=== PATIENT | male | born 1975 | race Caucasian/White ===

== ENCOUNTER 2020-10-23 21:18 | Emergency (ER) | payer OTHER, SELFPAY ==
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
[2020-10-23 21:23] VITALS: BP 150/71; PULSE 81; RESP 16; TEMP 37.1; O2SAT 100; BMI 38.2
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
[2020-10-23] MEDS: Ibuprofen 600 MG TABLET PO (22:10)
== END 2020-10-23 22:17 | disposition home or self-care (01) ==
LOC: HO.ED 21:56
PROVIDERS: Emergency Provider Internal Medicine
DX: Z04.1 Encounter for examination and observation following transport accident (principal); G89.11 Acute pain due to trauma; M25.562 Pain in left knee; M25.561 Pain in right knee; M54.5 Low back pain
CPT/HCPCS: 73080; 73564; 99283; 99284

== ENCOUNTER → 2020-12-27 09:36 | Outpatient (BNVA) | payer OTHER, SELFPAY | PROVIDERS: PCP Family Medicine; Visit Provider Nurse Practitioner ==

== ENCOUNTER 2021-01-11 10:00 | Outpatient (RCR) | payer OTHER, SELFPAY ==
--- NOTE | 2021-01-11 16:19 | MHC.PT.DC ---
[facility] Office [place] Office [place] Office [address] Renetta Mclaughlin [address] [phone] F: [phone] F: [phone] F: [phone] F: [phone] Physical Therapy Discharge Report Diagnosis: SPRAIN OF LIGAMENTS OF LUMBAR SPINE, INITIAL ENCOUNTER S33.5XXA - DR. AREVALO Date of Surgery: Date of Evaluation: 11/08/20 Date of Discharge: 01/11/21 Treatments to Date: 12 Cancellations to Date: 0 No Shows to Date: 0 Discharge Status: Achieved Goals Improved Function Independent with HEP Discharge Summary: Michael progressed well in PT and demonstrates improved strength, posture and body mechanics. He reports reduction in both frequency and intensity of symptoms, although he works 7 days a week and reports he often feels low back fatigue and stiffness after work. We have discussed this and he feels he is able to self manage symptoms and will contact me with any questions or difficulties. Electronically signed by: ARMANDO ARCOS PT, DPT Please sign and return to therapist. Thank you for your referral.
== END 2021-02-15 12:12 | disposition other institution (70) ==
LOC: HO.PT 10:00
PROVIDERS: PCP Family Medicine; Visit Provider Family Medicine
DX: S33.5XXD Sprain of ligaments of lumbar spine, subsequent encounter (principal)
CPT/HCPCS: 97014; 97110; 97140; 97161; 97530; 97535

== ENCOUNTER → 2021-01-27 09:26 | Outpatient (BNVA) | payer OTHER, SELFPAY | PROVIDERS: PCP Family Medicine; Visit Provider Nurse Practitioner ==

== ENCOUNTER 2021-09-08 09:32 | Emergency (ER) | payer OTHER, SELFPAY ==
[2021-09-08 09:43] VITALS: BP 125/70; PULSE 70; RESP 18; TEMP 36.6; O2SAT 97; BMI 37.8
[2021-09-08 10:12] VITALS: BP 150/81; PULSE 68; RESP 16; TEMP 36.2; O2SAT 98
--- NOTE | 2021-09-08 11:11 | ED.HA ---
HPI - Headache General Chief Complaint: Headache Stated Complaint: HEAD PAIN Time Seen by Provider: 09/08/21 11:11 Source: patient Mode of arrival: ambulatory Limitations: no limitations History of Present Illness HPI Narrative: 46 years old male with past medical history of CIC, GERD, hypertension is here today for complaints of right-sided occipital headache. Patient reports that the pain started 2 days ago any afternoon when he was at work. Patient reports the pain as sharp to the top of his head. Reports that the pain is worse when he touches his head. Pain radiates to his year in his eye. The pain is worse when he moves around or when he is touching top of his head. Patient denies any blurred vision, light sensitivity, vision changes. Patient reports to have right ear pain for the last few days. Patient reports that he cleans his ears every night with Q-tip. Patient reports that he took ibuprofen yesterday and the pain went away. However he reports that when he woke up this morning the pain was back. Patient denies any dizziness, presyncope or syncope. Denies any neurological symptoms. MD elicited complaint: headache Onset description: gradually Location: right and occipital Severity: mild Quality & Timing: throbbing Exacerbating factors: other (Touching, movement) Relieving factors: NSAIDs Context: other (At work 2 day's ago) Associated symptoms: other (Right ear pain) Treatments prior to arrival: ibuprofen Related Data Home Medications Medication Instructions Recorded Confirmed polyethylene glycol 3350 17 g PO 11/15/20 gram/dose oral powder Previous Rx's Medication Instructions Recorded cyclobenzaprine 10 mg tablet 10 mg PO TID PRN 7 Days #20 tab 10/27/20 diclofenac potassium 50 mg tablet 50 mg PO TID PRN 14 Days #50 tab 11/01/20 famotidine 40 mg tablet (Pepcid) 40 mg PO BEDTIME 30 Days #30 tab 01/27/21 lisinopril 10 mg tablet 10 mg PO DAILY #90 tab 07/07/21 omeprazole 40 mg capsule,delayed 40 mg PO DAILY 30 Days #30 cap NS 08/10/21 release ciprofloxacin 0.2 %-hydrocortisone 3 drp OTIC (EARS) Q12H 7 Days ml 09/08/21 1 % ear drops,suspension (Cipro HC) ibuprofen 600 mg tablet 600 mg PO Q8H PRN #20 tab 09/08/21 Allergies Allergy/AdvReac Type Severity Reaction Status Date / Time No Known Allergies Allergy Verified 09/08/21 09:42 Review of Systems Review of Systems: Constitutional : No Weight loss, No Fever, No Chills, No Night Sweats, No Fatigue, No Malaise ENT/Mouth : No Hearing loss, R Ear Pain, No Nasal Congestion, No Sinus Pain, No Hoarseness, No sore throat, No Rhinorrhea, No Swallowing Difficulty Eyes: R Eye Pain, No Swelling, No Redness, No Foreign Body, No Discharge, No Vision Changes Head: Right-sided headache Cardiovascular : No Chest Pain, No SOB, No Dyspnea on Exertion, No Orthopnea, No Edema, No Palpitations Respiratory : No Cough, No Sputum, No Wheezing, No Smoke Exposure, No Dyspnea Gastrointestinal : No Nausea, No Vomiting, No Diarrhea, No Constipation, No abdominal Pain, No Hematochezia, No Melena Genitourinary : no irregular bleeding, No Dysuria, No Urinary Frequency, No Hematuria, No Urinary Incontinence, No Urgency, No Flank Pain, No Urinary Flow Changes, No Hesitancy Musculoskeletal : No joint pain, No Myalgias, No Joint Swelling Skin : No Skin Lesions, No rash Neuro : No Weakness, No Numbness, No Paresthesias, No Loss of Consciousness, No Dizziness, No Headache Psych : No Anxiety/Panic, No Depression, No SI/HI/AH/VH, No Social Issues, Heme/Lymph: No Bruising, No Bleeding,No Lymphadenopathy Endocrine : No Polyuria, No Polydipsia, No Temperature Intolerance Yes all other systems are reviewed and are negative [facility] Past Medical History Medical History (Updated 09/08/21 @ 11:44 by Dyan Sen [facility]) No known health problems Surgical History Hx of colonoscopy Family History Family History Father Diabetes mellitus Mother No problems noted. Paternal Grandmother No problems noted. Brother No problems noted. Brother No problems noted. Sister No problems noted. Sister No problems noted. Sister No problems noted. Sister No problems noted. Daughter No problems noted. Daughter No problems noted. Daughter No problems noted. Social History Social History (Updated 01/27/21 @ 09:28 by Tosha Doshi [facility]) Alcohol intake: current Alcohol intake frequency: does not drink Physical Exam Vital Signs: Vital Signs: Last Vital Signs Temp 97.1 F 09/08/21 10:12 Pulse 68 09/08/21 10:12 Resp 16 09/08/21 10:12 BP 150/81 H 09/08/21 10:12 Pulse Ox 98 09/08/21 10:12 Body Mass Index 37.8 Const: General: healthy appearing, no acute distress and well developed Nutritional Appearance: well nourished Orientation/consciousness: patient oriented x3 HENMT: Head: Yes normal to inspection, Yes normocephalic and Yes atraumatic Ears: hearing grossly normal bilaterally and other (Right ear otitis externa) General nose exam: Normal external nose present and Normal nares present Face and sinus: Yes normal facial exam Mouth: Normal oral and palatal mucosa present Throat: Yes posterior oropharynx normal, Yes tonsils normal and Yes uvula midline Eyes: General: appearance normal, both eyes and all related structures Neck: Neck: Yes normal visual inspection, Yes full ROM and Yes trachea midline Thyroid: Thyroid normal Resp: Effort & Inspection: normal respiratory effort, able to speak in complete sentences, no tracheal deviation and symmetric chest movement Auscultation: clear to auscultation bilaterally Cardio: Jugular venous distension: no JVD Rate: regular rate Rhythm: regular rhythm Heart sounds: S1 normal heart sound present, S2 normal heart sound present, no gallops and no murmurs GI: Inspection: Yes normal to inspection and No distended Palpation (GI): Soft to palpation, not firm, nontender and No hepatosplenomegaly present Auscultation: normal bowel sounds : General: Yes no CVA tenderness Back/Spine/Pelvis: Back: no CVA tenderness Skin: General skin exam: elasticity normal, turgor normal and dry skin Neuro: General: patient oriented x3 Psych: Appearance: grossly normal Mental Status: mental status grossly normal Speech and movement: Normal speech and movement present Affect: normal affect Attitude: cooperative Thought process: Normal thought process present Thought content: Normal thought content present Insight: Good insight present (Psych) Judgement: Good judgement present (Psych) NIH Stroke Scale Internal: Initial- Upon Arrival Level of Consciousness: Alert Level of Consciousness Questions: Answers both questions correctly Level of Consciousness Commands: Performs both tasks correctly Best Gaze: Normal Visual: No visual loss Facial Palsy: Normal Motor Arm (Right): No drift Motor Arm (Left): No drift Motor Leg (Right): No drift Motor Leg (Left): No drift Limb Ataxia: Absent Sensory: Normal Best Language: No aphasia Dysarthia: Normal Extinction and Inattention: No abnormality Score: 0 Course Course Course Narrative: 46 years old male with past medical history of GERD, hypertension, CIC is here today for complaining of right-sided head pain. Patient reports that the pain started 2 days ago while he was at work. Pain is worse when he touches the area, radiates to right eye and right ear. Upon exam patient does have a right external otitis media. Patient denies any blurred vision, light sensitivity, vision changes. Denies any dizziness, syncope, presyncope. His NIH scale is 0. No neural deficits. This is most likely related to otitis media. Will medicate him with ibuprofen and send him home with Cortisporin suspension drops 4 times a day for 10 days. Discharge Plan Discharge Clinical Impression: Otitis externa Qualifiers: Otitis externa type: noninfectious Noninfectious otitis externa type: unspecified noninfectious type Chronicity: acute Laterality: right Qualified Code(s): H60.501 - Unspecified acute noninfective otitis externa, right ear Headache Qualifiers: Headache type: unspecified Headache chronicity pattern: acute headache Intractability: not intractable Qualified Code(s): R51.9 - Headache, unspecified Patient Disposition: Home, Self-Care Instructions: Otitis Externa (ED), Migraine Headache (ED) Additional Instructions: You were seen here today for right-sided headache. You do have right outer ear infection. Please make sure that you do not use Q-tips to clean your ears. You may dry you years with a towel. You may take ibuprofen to help you with the pain. You will be given script for ear drops any you will be taking them 4 times a day for 10 days. Please return to emergency department if your symptoms will get worse or if you will experience any additional concerning symptoms. Prescriptions: New ibuprofen 600 mg tablet 600 mg PO Q8H PRN (Reason: pain) Qty: 20 RF: 0 Cipro HC 0.2-1 % drops,suspension 3 drp otic (ears) Q12H 7 Days RF: 0 No Action lisinopril 10 mg tablet 10 mg PO DAILY Qty: 90 RF: 0 omeprazole 40 mg capsule,delayed release(DR/EC) 40 mg PO DAILY 30 Days Qty: 30 RF: 0 cyclobenzaprine 10 mg tablet 10 mg PO TID PRN (Reason: muscle spasm) 7 Days Qty: 20 RF: 0 polyethylene glycol 3350 17 gram/dose powder PO RF: 0 diclofenac potassium 50 mg tablet 50 mg PO TID PRN (Reason: pain) 14 Days Qty: 50 RF: 0 famotidine [Pepcid] 40 mg tablet 40 mg PO BEDTIME 30 Days Qty: 30 RF: 6 Referrals: Aristeo Ang MD [Primary Care Provider] - 1 week Stand Alone Forms: Work/School Release Interventions: ED Discharge Assessment Last Done: 09/08/21 11:56 Discharge Date/Time: 09/08/21 11:56 Print Language: Chinese
== END 2021-09-08 11:56 | disposition home or self-care (01) ==
PROVIDERS: Emergency Provider Emergency Medicine Emergency Medical Services; PCP Family Medicine
DX: H60.501 Unspecified acute noninfective otitis externa, right ear (principal); R51.9 Headache, unspecified; I10 Essential (primary) hypertension
CPT/HCPCS: 99283

== ENCOUNTER → 2021-09-09 11:09 | Outpatient (BNVA) | payer OTHER, SELFPAY | PROVIDERS: PCP Family Medicine; Visit Provider Nurse Practitioner ==

== ENCOUNTER 2021-10-03 10:24 | Outpatient (REF) | payer OTHER, SELFPAY ==
[2021-10-03 10:39] LABS: MANUAL DIFF FLAG NO
[2021-10-03 10:49] LABS: Basophils Percent Auto 0.3 % (0-2); Eosinophils Absolute Auto 0.1 X10*3/uL (0.0-0.4); Eosinophils Percent Auto 0.8 % (0-4); Hemoglobin 14.9 g/dl (14.0-18.0); Imm Gran Abs Auto 0.02 X10*3/uL (0.00-0.03); Imm Gran Pct Auto 0.3 % (0.0-0.4); Lymphocytes Percent Auto 29.5 % (20-40); Mean Corpuscular HGB Conc 33.9 g/dl (31.0-36.0); Mean Corpuscular Hemoglobin 30.2 pg (27.0-33.0); Mean Corpuscular Volume 89.1 fL (80.0-98.0); Mean Platelet Volume 9.6 fL (9.4-12.4); Monocytes Absolute Auto 0.3 X10*3/uL (0.1-1.2); Monocytes Percent Auto 4.8 % (2-11); Neutrophils Absolute Auto 4.3 x10*3/uL (2.0-8.3); Neutrophils Percent Auto 64.3 % (45-73); Platelet Count 273 X10*3/uL (160-400); Red Blood Count 4.94 X10*6/uL (4.60-5.80); White Blood Count 6.6 X10*3/uL (4.8-10.8)
[2021-10-03 11:32] LABS: TSH reflex Free T4 1.18 uIU/mL (0.32-4.0)
[2021-10-03 11:42] LABS: Alanine Aminotransferase 13 U/L (0-40); Albumin Level 4.4 g/dL (3.5-5.0); Alkaline Phosphatase 79 U/L (39-117); Anion Gap 15 (12-20); Aspartate Amino Transferase 12 U/L (5-37); Bilirubin Total 0.4 mg/dL (0.0-1.0); Blood Urea Nitrogen 18 mg/dL (9-16); Calcium 10.1 mg/dL (8.4-10.2); Carbon Dioxide 25 mmol/L (22-29); Chloride 104 mmol/L (96-108); Cholesterol 168 mg/dL; Estimated Glomerular Filt Rate > 60; Glucose Fasting 126 mg/dL (60-99); HDL Cholesterol 34 mg/dL; LDL Cholesterol Calculated 114 mg/dl; Potassium 4.6 mmol/L (3.3-5.1); Sodium 139 mmol/L (135-145); Triglycerides 101 mg/dL
== END 2021-10-03 10:25 | disposition home or self-care (01) ==
LOC: HO.LAB 10:24
PROVIDERS: PCP Family Medicine; Visit Provider Nurse Practitioner
DX: Z00.00 Encounter for general adult medical examination without abnormal findings (principal); K21.9 Gastro-esophageal reflux disease without esophagitis
CPT/HCPCS: 36415; 80053; 80061; 84443; 85025

== ENCOUNTER → 2021-10-07 08:43 | Outpatient (BNVA) | payer OTHER, SELFPAY | PROVIDERS: PCP Family Medicine; Referring Provider Family Medicine; Visit Provider Nurse Practitioner | DX: K21.9 Gastro-esophageal reflux disease without esophagitis (principal); K59.04 Chronic idiopathic constipation; D12.6 Benign neoplasm of colon, unspecified | CPT/HCPCS: 99212 ==

== ENCOUNTER → 2021-11-11 | Day surgery (SDC) | payer OTHER, SELFPAY ==
[2021-11-07 09:58] VITALS: BMI 37.8
--- NOTE | 2021-11-10 08:44 | P.CONAN_ITS ---
Documented by User: Nella Bradford NP 11/10/21 08:45 HPI - Anesthesia Eval Consult details Narrative: 46yo M for Colonoscopy PMFSH Active Problems Active Problems: All Active Problems (Updated 09/09/21 @ 11:17 by LINDSAY Murry) Tubular adenoma of colon (Acute) Laboratory examination ordered as part of a routine general medical examination (Acute) Chronic idiopathic constipation (Acute) GERD (gastroesophageal reflux disease) (Acute) Essential hypertension (Acute) Contusion, knee (Acute) Low back sprain (Acute) Muscle strain (Acute) Past Medical History Medical History (Updated 09/09/21 @ 11:17 by LINDSAY Murry) No known health problems Family History Family History Father Diabetes mellitus Mother No problems noted. Paternal Grandmother No problems noted. Brother No problems noted. Brother No problems noted. Sister No problems noted. Sister No problems noted. Sister No problems noted. Sister No problems noted. Daughter No problems noted. Daughter No problems noted. Daughter No problems noted. Surgical History Surgical History (Updated 09/09/21 @ 11:17 by LINDSAY Murry) Hx of colonoscopy Social History Social History (Updated 11/07/21 @ 10:00 by Deb Styles RN) Alcohol intake: current Alcohol intake frequency: does not drink Patient Tobacco Use Status: Never used Tobacco Use of substances other than those prescribed or required for medical reasons: No Meds Allergies Allergy/AdvReac Type Severity Reaction Status Date / Time No Known Allergies Allergy Verified 11/07/21 09:57 Home Medications Medication Instructions Recorded Confirmed Last Taken Type polyethylene glycol 3350 17 g PO 11/15/20 Unknown History gram/dose oral powder Exam Exam Date and Time: November 10, 2021 0844 Height,Weight and Vital Signs: Height 5 ft 5 in Weight 102.965 kg Pertinent Lab Results Pertinent Lab Results: Laboratory Tests 10/03/21 10/03/21 10:38 10:38 WBC 6.6 Hgb 14.9 Hct 44.0 Plt Count 273 Sodium 139 Potassium 4.6 Chloride 104 Carbon Dioxide 25 BUN 18 H Creatinine 1.17 Assessment and Plan Assessment Anesthesia Assessment: Chart Reviewed Documented by User: Halina Garcia MD 11/11/21 10:19 [facility] Past Medical History Medical History (Updated 09/09/21 @ 11:17 by LINDSAY Murry) No known health problems Family History Family History Father Diabetes mellitus Mother No problems noted. Paternal Grandmother No problems noted. Brother No problems noted. Brother No problems noted. Sister No problems noted. Sister No problems noted. Sister No problems noted. Sister No problems noted. Daughter No problems noted. Daughter No problems noted. Daughter No problems noted. Family history of problems with anesthesia: No Surgical History Surgical History (Updated 09/09/21 @ 11:17 by LINDSAY Murry) Hx of colonoscopy History of Problems with Anesthesia: No Social History Social History (Updated 11/07/21 @ 10:00 by Deb Styles, KRYSTA) Alcohol intake: current Alcohol intake frequency: does not drink Patient Tobacco Use Status: Never used Tobacco Use of substances other than those prescribed or required for medical reasons: No Meds Allergies Allergy/AdvReac Type Severity Reaction Status Date / Time No Known Allergies Allergy Verified 11/07/21 09:57 Home Medications Medication Instructions Recorded Confirmed Last Taken Type polyethylene glycol 3350 17 g PO 11/15/20 Unknown History gram/dose oral powder Exam Airway Mallampati Class: II TM Dist: >3cm Neck ROM: Full Heart: rrr Lungs: ta Assessment and Plan Assessment Anesthesia Assessment: Anesthesia Plan Discussed and Chart Reviewed Final Anesthetic Review Family History of Problems with Anesthesia: No History of Problems with Anesthesia: No NPO: Yes ASA Class: II Final Preanesthetic Review: No Changes in Pt Med Stat, Meds/Allgs Chart Reviewed and Consent Obtained/Reviewed Patient Risk: Intermediate Procedure Risk: Intermediate Anesthetic Plan Anesthetic Plan: MAC: Disposition: Standard PACU
[2021-11-11 10:16] VITALS: BP 148/92; PULSE 73; RESP 16; TEMP 37.1; O2SAT 96
--- NOTE | 2021-11-11 10:30 | MHC.SHP ---
Pre-Procedural Eval Section A Date of Service: 11/11/21 The patient is an INPATIENT: No The History & Physical has been completed within 30 days and I have reviewed it.: No Section B Chief Complaint: Colon cancer screening, history of colon polyps Details of Present Illness: Colon cancer screening, history of colon polyps, constipation Relevant Family History (Specify if Yes): No Relevant Social History: None Present Medications: see Short Stay Collaborative assessment Medical History: Significant History (GERD, constipation, hypertension) History of Previous Operations: Relevant previous surgery/procedure and date(s) (History of colonoscopy) Allergies: Allergies Allergy/AdvReac Type Severity Reaction Status Date / Time No Known Allergies Allergy Verified 11/07/21 09:57 Review of Systems Sugical H&P ROS: Negative: Constitution, Cardiovascular, Respiratory and Gastrointestinal Exam Surgical H&P Exam: Normal: Heart, Normal: Lungs, Normal: Extremities and Normal: Abdomen Plan Diagnosis/Plan: Unchanged I have reviewed the history and physical and performed a pertinent physical examination on my patient. No changes have occurred unless specified.
--- NOTE | 2021-11-11 10:32 | W.PM.OPN ---
Operative Note Operative Note Date of Service: 11/11/21 Narrative: Pre-op diagnosis:?Colon cancer screening history of colon polyps Post-op diagnosis:?other (Diverticulosis) Procedure:? COLONOSCOPY TILL CECUM Consent: Indications for the procedure and potential complications of bleeding, perforation, reaction to medications and missed diagnosis were discussed with the patient and informed consent was obtained. Instrument: Olympus PCF H 190 L variable stiffness pediatric colonoscope Monitoring: Vital signs and clinical assessment, intermittent blood pressure monitoring, continuous EKG monitoring, Pulse oximetry and Carbon Dioxide monitoring were done throughout the procedure. Colon withdrawl time was 14 minutes. Procedure: The patient was placed in the left lateral decubitis position and pre-procedure medications were administered. After a digital rectal examination of the ano-rectum, the video colonoscope was inserted into the rectum and advanced through the colon to the cecum. The colonoscope was slowly withdrawn in a retrograde panoramic fashion and the colon mucosa was carefully examined including a retroflexed view of the rectum. Findings and interventions are described below. Procedure Difficulty: Without difficulty Findings: Terminal Ileum: Not evaluated Cecum:? Normal Ascending Colon:? Normal Transverse Colon:? Normal Descending Colon:? Normal Sigmoid Colon:? Moderate diverticulosis Rectum:? Normal Ano-rectum:? Normal Colon preparation: Excellent ? Impression and Post Procedure Diagnosis: Colonoscopy Findings: No polyps were detected Moderate diverticulosis seen in the sigmoid colon Plan: Patient has an appointment on 11/18/21 in the GI Clinic with? Sarai Colin NP. Repeat Colonoscopy in 5 years due to a hx of colon polyps (if next colonoscopy is negative then future colonoscopies every 10 yrs). Above findings were reviewed with the patient and diverticulosis handouts were given in the discharge area Surgeon:?Perry Chaney MD Anesthesia:?MAC (Dr Morejon) Was an Associate Software Engineer used for this Procedure?:?Yes Associate Software Engineer:?Antoine Pratt Estimated blood loss (mL):?0 Pathology:?none sent Condition:?stable Disposition:?PACU
[2021-11-11] MEDS: Lactated Ringers 1,000 ML 100 ML IVCONT (10:33)
[2021-11-11 11:07] VITALS: BP 95/63; PULSE 63; RESP 16; TEMP 36.3; O2SAT 94
[2021-11-11 11:22] VITALS: BP 112/73; PULSE 60; RESP 18; TEMP 36.2
== END | disposition home or self-care (01) ==
PROVIDERS: PCP Family Medicine; Visit Provider Internal Medicine Gastroenterology
PROC: 0DJD8ZZ Inspection of Lower Intestinal Tract, Via Natural or Artificial Opening Endoscopic (ICD-10-PCS; CPT 45378; principal; 2021-11-11 10:30)
DX: Z12.11 Encounter for screening for malignant neoplasm of colon (principal); Z86.010 Personal history of colon polyps; K57.30 Diverticulosis of large intestine without perforation or abscess without bleeding; K59.04 Chronic idiopathic constipation; K21.9 Gastro-esophageal reflux disease without esophagitis; I10 Essential (primary) hypertension; Z79.899 Other long term (current) drug therapy
CPT/HCPCS: 45378

== ENCOUNTER → 2021-11-18 08:58 | Outpatient (BNVA) | payer OTHER, SELFPAY | PROVIDERS: PCP Family Medicine; Referring Provider Family Medicine; Visit Provider Nurse Practitioner | DX: K21.9 Gastro-esophageal reflux disease without esophagitis (principal); K59.04 Chronic idiopathic constipation; D12.6 Benign neoplasm of colon, unspecified | CPT/HCPCS: 99212 ==

== ENCOUNTER → 2022-06-13 08:46 | Outpatient (BNVA) | payer OTHER, SELFPAY | PROVIDERS: PCP Family Medicine; Referring Provider Family Medicine; Visit Provider Nurse Practitioner | DX: K21.9 Gastro-esophageal reflux disease without esophagitis (principal); K59.04 Chronic idiopathic constipation; D12.6 Benign neoplasm of colon, unspecified | CPT/HCPCS: 99212 ==

== ENCOUNTER 2022-07-19 07:57 | Emergency (ER) | payer OTHER, SELFPAY ==
--- NOTE | ~2022-07-19 | XR_ITS ---
EXAMINATION: XR CHEST CLINICAL INFORMATION: Cough and fever. COMPARISON: 01/11/2016 chest radiographs. TECHNIQUE: 2 views of the chest were obtained. FINDINGS: No significant abnormality is noted involving the heart, lungs, mediastinum, bony thorax or soft tissues. XR/XR chest 2V IMPRESSION: No acute cardiopulmonary process.
[2022-07-19 08:08] VITALS: BP 180/93; PULSE 110; RESP 20; TEMP 39.5; O2SAT 95; BMI 40.8
[2022-07-19] MEDS: Ibuprofen 600 MG TABLET PO (08:17)
[2022-07-19 08:31] LABS: MANUAL DIFF FLAG NO
[2022-07-19 08:33] LABS: Basophils Percent Auto 0.2 % (0-2); Eosinophils Percent Auto 0.2 % (0-4); Hematocrit 41.5 % (42.0-52.0); Hemoglobin 14.9 g/dl (14.0-18.0); Imm Gran Abs Auto 0.03 X10*3/uL (0.00-0.03); Imm Gran Pct Auto 0.3 % (0.0-0.4); Lymphocytes Absolute Auto 0.9 X10*3/uL (1.2-4.9); Lymphocytes Percent Auto 10.8 % (20-40); Mean Corpuscular HGB Conc 35.9 g/dl (31.0-36.0); Mean Corpuscular Hemoglobin 29.7 pg (27.0-33.0); Mean Corpuscular Volume 82.8 fL (80.0-98.0); Mean Platelet Volume 9.1 fL (9.4-12.4); Monocytes Absolute Auto 0.6 X10*3/uL (0.1-1.2); Monocytes Percent Auto 6.7 % (2-11); Neutrophils Absolute Auto 7.1 x10*3/uL (2.0-8.3); Neutrophils Percent Auto 81.8 % (45-73); Platelet Count 249 X10*3/uL (160-400); Red Blood Count 5.01 X10*6/uL (4.60-5.80); Red Cell Distribution Width 12.2 % (11.0-16.0); White Blood Count 8.7 X10*3/uL (4.8-10.8)
[2022-07-19 08:44] LABS: Lactic Acid 1.4 mmol/L (0.5-2.0)
[2022-07-19 08:46] LABS: IDNOW Serial# 55D5AD1C; Influenza A Negative (Negative); Influenza B2 Negative (Negative)
[2022-07-19 08:47] LABS: Anion Gap 17 (12-20); Blood Urea Nitrogen 14 mg/dL (9-16); Calcium 9.3 mg/dL (8.4-10.2); Carbon Dioxide 21 mmol/L (22-29); Chloride 102 mmol/L (96-108); Creatinine Clr Calc Pharmacy 89.1; Estimated Glomerular Filt Rate > 60; Glucose Random 125 mg/dL (60-115); Potassium 4.1 mmol/L (3.3-5.1); Sodium 136 mmol/L (135-145)
[2022-07-19 08:48] LABS: COVID-19 Test Negative (Negative)
[2022-07-19 20:00] VITALS: BP 149/85; PULSE 85; RESP 20; TEMP 37.3; O2SAT 96
--- NOTE | 2022-07-19 21:00 | ED_ITS ---
HPI - Fever General Stated Complaint: fever, dizzy Time Seen by Provider: 07/19/22 17:15 Source: patient Mode of arrival: ambulatory Limitations: language barrier (Norwegian-speaking) History of Present Illness HPI Narrative: 47-year-old male who is Norwegian-speaking with a past medical history of hypertension who reports he has not taken his lisinopril in a few months his primary care provider Dr. Aristeo Ang presenting to the ER with complaints of fevers up to 103.0 with associated headaches, fatigue, malaise, sore throat, nasal congestion/rhinorrhea, cough c chest congestion x 2-3 days. with similar symptoms no other sick contacts. He reports that his blood pressure is high due to he has not been taking his lisinopril 10 mg for a few months and is requesting refill at this time. Denies dizziness, neck pain/stiffness, change in vision, jaw pain, nausea/vomiting, chest pain or shortness of breath, dyspnea on exertion, orthopnea, palpitations, paresthesias, diarrhea, abdominal pain, back pain, flank pain, dysuria, hematuria, abnormal penile discharge, rashes, recent travel or any other symptoms complaints or concerns at this time. MD elicited complaint: fever Onset (ago): day(s) (2-3 days worse today) Context: sick contacts (White for similar symptoms no other sick contacts that he is aware) Relieving factors: ibuprofen (He received Motrin at 08:00 when he 1st arrived here in the emergency depart) Associated symptoms: chills, myalgias, headache, rhinorrhea, nasal congestion, sore throat and cough Treatments prior to arrival fever: none Related Data Home Medications Medication Instructions Recorded Confirmed polyethylene glycol 3350 17 g PO 11/15/20 gram/dose oral powder Previous Rx's Medication Instructions Recorded omeprazole 40 mg capsule,delayed 40 mg PO DAILY 30 days #30 caps 04/10/22 release albuterol sulfate 90 mcg/actuation 1 inh inhalation QID PRN shortness 07/19/22 aerosol inhaler of breath or wheezing #8.5 grams azithromycin 250 mg tablet See Rx Instructions PO .COMPLEX #6 07/19/22 tabs codeine 10 mg-guaifenesin 100 mg/5 5 ml PO Q6H PRN cold symptoms #120 07/19/22 mL oral liquid (Guaifenesin AC) mL cyclobenzaprine 10 mg tablet 10 mg PO Q8H PRN Muscle spasm #14 07/19/22 tabs lisinopril 10 mg tablet 10 mg PO DAILY hypertension #30 07/19/22 tabs prednisone 20 mg tablet 40 mg PO DAILY inflammation 5 days 07/19/22 #10 tabs Allergies Allergy/AdvReac Type Severity Reaction Status Date / Time No Known Allergies Allergy Verified 06/13/22 08:52 Review of Systems Review of Systems: Constitutional : + fever/chills/fatigue/malaise, No Weight loss, No Night Sweats ENT/Mouth : + nasal congestion/rhinorrhea/sore throat, No Hearing loss, No Ear Pain, No Sinus Pain, No Hoarseness, No Swallowing Difficulty Eyes: No Eye Pain, No Swelling, No Redness, No Foreign Body, No Discharge, No Vision Changes Cardiovascular : No Chest Pain, No SOB, No Dyspnea on Exertion, No Orthopnea, No Edema, No Palpitations Respiratory : + Cough, No Sputum, No Wheezing, No Smoke Exposure, No Dyspnea Gastrointestinal : No Nausea, No Vomiting, No Diarrhea, No Constipation, No abdo mattie Pain, No Hematochezia, No Melena Genitourinary : no irregular bleeding, No Dysuria, No Urinary Frequency, No Hematuria, No Urinary Incontinence, No Urgency, No Flank Pain, No Urinary Flow Changes, No Hesitancy Musculoskeletal : No joint pain, + Myalgias, No Joint Swelling Skin : No Skin Lesions, No rash Neuro : No Weakness, No Numbness, No Paresthesias, No Loss of Consciousness, No Dizziness, No Headache Psych : No Anxiety/Panic, No Depression, No SI/HI/AH/VH, No Social Issues, Heme/Lymph: No Bruising, No Bleeding,No Lymphadenopathy Endocrine : No Polyuria, No Polydipsia, No Temperature Intolerance Yes all other systems are reviewed and are negative [facility] Past Medical History Attestation statement: The following information was validated with the patient. Source: old records reviewed and nursing notes reviewed Medical History No known health problems Surgical History Hx of colonoscopy Family History Family History Father Diabetes mellitus Mother No problems noted. Paternal Grandmother No problems noted. Brother No problems noted. Brother No problems noted. Sister No problems noted. Sister No problems noted. Sister No problems noted. Sister No problems noted. Daughter No problems noted. Daughter No problems noted. Daughter No problems noted. Social History Social History Alcohol intake: current Alcohol intake frequency: does not drink Patient Tobacco Use Status: Never used Tobacco Advance Directives: No Advance Directives Information Provided: No Physical Exam Vital Signs: Vital Signs: Last Vital Signs Temp 99.2 F 07/19/22 20:00 Pulse 85 07/19/22 20:00 Resp 20 07/19/22 20:00 BP 149/85 H 07/19/22 20:00 Pulse Ox 96 07/19/22 20:00 O2 Del Method 07/19/22 20:00 BMI result Body Mass Index 40.8 vital signs have been reviewed as normal and appeared to be correct. Blood pressure 180/93. Heart rate 110. Respiration rate normal. Temperature 103.1. Oxygen saturation normal. Appearance: Alert. Oriented X3. No acute distress. Head: Normal external exam. Normocephalic. Atraumatic. Eyes: PERRLA. EOMI. Conjunctiva and sclera normal. Eyelids normal. ENT: EAC normal. TM's Normal. Posterior pharynx mildly erythematous although no exudate is noted. Uvula is midline. Soft and hard palate are within normal limits. Moist mucous membranes. No lesions/ulcerations or masses noted on the tongue. Normal voice. No trismus noted. No drooling noted. No muffled voice noted. Neck: Normal inspection. Neck supple. FROM. No adenopathy. Thyroid Normal. No tracheal deviation noted. No crepitus is noted. No meningeal signs. No neck mass noted. No signs of trauma noted. CVS: Normal heart rate and rhythm. Heart sound normal. Pulses normal throughout. No murmurs/rales/gallops. Respiratory: No respiratory distress. Painless inspiration. Breath sounds normal. No wheezes/rales/rhonchi noted. Chest nontender. No crepitus is noted. No accessory muscle usage noted or decreased air movement noted. No signs of trauma. Abdomen: Soft and nontender. Nondistended. No guarding. No rigidity. Bowel sounds normal in all 4 quadrants. No distention noted. No organomegaly noted. No rebound tenderness. Back: Full range of motion noted. Nontender. Skin: Skin warm and dry. Normal skin color. Normal skin turgor. No rashes/lesions/lacerations noted. Extremities: Extremities exhibit normal range of motion and nontender. Neuro: Oriented X 3. No motor deficit. No sensory deficit. Normal steady gait. No focal neuro deficits noted. CN's II-XII intact bilaterally? Vascular: + radial pulses/+ 2 distal pedal pulses/+2 dorsalis pedis b/l. Normal cap refill. No cyanosis noted to upper extremity nails and lower extremity toes nails. Course Course Course Narrative: Patient had labs a he was in the waiting room and random glucose 125. Otherwise all other labs are within normal limits. Patient was negative for COVID/flu. Chest x-ray within normal limits. Therefore at this time will DC home with antibiotics and symptomatic treatment and refill the patient's blood pressure medication with instructions return if any new or worsening symptoms and to self isolate and to retest for COVID if he continues to have symptoms and to take his medication as previously prescribed and follow up with primary care provider. Patient understands agrees with this plan. MDM - Fever Medical Records Attestation: I reviewed the patient's medical records. Lab Data Attestation: I reviewed the patient's lab results. Result diagrams: 07/19/22 08:24 07/19/22 08:24 Labs: Lab Results 07/19/22 07/19/22 07/19/22 Range/Units 08:12 08:12 08:24 WBC 8.7 (4.8-10.8) X10*3/uL RBC 5.01 (4.60-5.80) X10*6/uL Hgb 14.9 (14.0-18.0) g/dl Hct 41.5 L (42.0-52.0) % MCV 82.8 (80.0-98.0) fL MCH 29.7 (27.0-33.0) pg MCHC 35.9 (31.0-36.0) g/dl RDW 12.2 (11.0-16.0) % Plt Count 249 (160-400) X10*3/uL MPV 9.1 L (9.4-12.4) fL Immature Gran % (Auto) 0.3 (0.0-0.4) % Neut % (Auto) 81.8 H (45-73) % Lymph % (Auto) 10.8 L (20-40) % [place] % (Auto) 6.7 (2-11) % Eos % (Auto) 0.2 (0-4) % Baso % (Auto) 0.2 (0-2) % Lymph # (Auto) 0.9 L (1.2-4.9) X10*3/uL [place] # (Auto) 0.6 (0.1-1.2) X10*3/uL Eos # (Auto) 0.0 (0.0-0.4) X10*3/uL Baso # (Auto) 0.0 (0.0-0.2) X10*3/uL Abs Immat Gran (auto) 0.03 (0.00-0.03) X10*3/uL Absolute Neuts (auto) 7.1 (2.0-8.3) x10*3/uL Absolute Nucleated RBC 0.000 (0.0-0.012) X10*3/uL Nucleated RBC % (auto) 0.0 (0.0-0.2) /100WBC Sodium (135-145) mmol/L Potassium (3.3-5.1) mmol/L Chloride (96-108) mmol/L Carbon Dioxide (22-29) mmol/L Anion Gap (12-20) BUN (9-16) mg/dL Creatinine (0.5-1.4) mg/dL Estim Creat Clear Calc Estimated GFR Random Glucose (60-115) mg/dL Lactic Acid (0.5-2.0) mmol/L Calcium (8.4-10.2) mg/dL COVID-19 (PACO) Negative (Negative) COVID-19 Clin Com See Note Influenza Type A (OLAF) Negative (Negative) Influenza Type B (OLAF) Negative (Negative) Influenza A & B Note See Note 07/19/22 07/19/22 Range/Units 08:24 08:24 WBC (4.8-10.8) X10*3/uL RBC (4.60-5.80) X10*6/uL Hgb (14.0-18.0) g/dl Hct (42.0-52.0) % MCV (80.0-98.0) fL MCH (27.0-33.0) pg MCHC (31.0-36.0) g/dl RDW (11.0-16.0) % Plt Count (160-400) X10*3/uL MPV (9.4-12.4) fL Immature Gran % (Auto) (0.0-0.4) % Neut % (Auto) (45-73) % Lymph % (Auto) (20-40) % [place] % (Auto) (2-11) % Eos % (Auto) (0-4) % Baso % (Auto) (0-2) % Lymph # (Auto) (1.2-4.9) X10*3/uL [place] # (Auto) (0.1-1.2) X10*3/uL Eos # (Auto) (0.0-0.4) X10*3/uL Baso # (Auto) (0.0-0.2) X10*3/uL Abs Immat Gran (auto) (0.00-0.03) X10*3/uL Absolute Neuts (auto) (2.0-8.3) x10*3/uL Absolute Nucleated RBC (0.0-0.012) X10*3/uL Nucleated RBC % (auto) (0.0-0.2) /100WBC Sodium 136 (135-145) mmol/L Potassium 4.1 (3.3-5.1) mmol/L Chloride 102 (96-108) mmol/L Carbon Dioxide 21 L (22-29) mmol/L Anion Gap 17 (12-20) BUN 14 (9-16) mg/dL Creatinine 1.14 (0.5-1.4) mg/dL Estim Creat Clear Calc 89.1 Estimated GFR > 60 Random Glucose 125 H (60-115) mg/dL Lactic Acid 1.4 (0.5-2.0) mmol/L Calcium 9.3 D (8.4-10.2) mg/dL COVID-19 (PACO) (Negative) COVID-19 Clin Com Influenza Type A (OLAF) (Negative) Influenza Type B (OLAF) (Negative) Influenza A & B Note Imaging Data Chest x-ray: Attestation: I personally reviewed and interpreted this imaging study as follows: Radiologist's impression: FINDINGS: No significant abnormality is noted involving the heart, lungs, mediastinum, bony thorax or soft tissues. XR/XR chest 2V IMPRESSION: No acute cardiopulmonary process. Discharge Plan Discharge Clinical Impression: Fever, Acute viral syndrome, Hypertension, Medication refill Patient Disposition: Home, Self-Care Instructions: Fever in Adults (ED), Viral Syndrome (ED), Hypertension (ED), Medicine Refill (ED) Prescriptions: New azithromycin 250 mg tablet See Rx Instructions PO .COMPLEX Qty: 6 0RF Rx Instructions: take 500 mg today (day 1), then 250 mg for 4 days (days 2-5) cyclobenzaprine 10 mg tablet 10 mg PO Q8H PRN (Reason: Muscle spasm) Qty: 14 0RF codeine-guaifenesin [Guaifenesin AC] 10-100 mg/5 mL liquid 5 ml PO Q6H PRN (Reason: cold symptoms) Qty: 120 0RF albuterol sulfate 90 mcg/actuation HFA aerosol inhaler 1 inh inhalation QID PRN (Reason: shortness of breath or wheezing) Qty: 8.5 0RF prednisone 20 mg tablet 40 mg PO DAILY 5 Days Qty: 10 0RF lisinopril 10 mg tablet 10 mg PO DAILY Qty: 30 0RF No Action omeprazole 40 mg capsule,delayed release(DR/EC) 40 mg PO DAILY 30 Days Qty: 30 6RF polyethylene glycol 3350 17 gram/dose powder PO Referrals: Aristeo Ang MD [Primary Care Provider] - 2 days Stand Alone Forms: Work/School Release Interventions: ED Discharge Assessment Last Done: 07/19/22 21:30 Discharge Date/Time: 07/19/22 21:31 Print Language: Norwegian
[2022-07-19] MEDS: Acetaminophen 325 MG TABLET 975 MG PO (21:21)
[2022-07-19] MEDS: Ibuprofen 800 MG TABLET PO (21:21)
[2022-07-19] MEDS: lisinopriL 10 MG TABLET PO (21:22)
[2022-07-19] MEDS: guaiFEN/Codeine SF 200/20/10ML 10 ML LIQUID PO (21:22)
== END 2022-07-19 21:31 | disposition home or self-care (01) ==
PROVIDERS: Emergency Provider Internal Medicine; PCP Family Medicine
DX: B34.9 Viral infection, unspecified (principal); R50.9 Fever, unspecified; Z20.822 Contact with and (suspected) exposure to COVID-19; I10 Essential (primary) hypertension; Z76.0 Encounter for issue of repeat prescription
CPT/HCPCS: 36415; 71046; 80048; 83605; 85025; 87040; 87502; 87635; 99283

== ENCOUNTER 2022-10-09 09:39 | Outpatient (REF) | payer OTHER, SELFPAY ==
[2022-10-09 12:28] LABS: Alanine Aminotransferase 15 U/L (0-40); Albumin Level 4.4 g/dL (3.5-5.0); Alkaline Phosphatase 76 U/L (39-117); Anion Gap 11 (12-20); Aspartate Amino Transferase 12 U/L (5-37); Bilirubin Total 0.5 mg/dL (0.0-1.0); Blood Urea Nitrogen 17 mg/dL (9-16); Calcium 9.5 mg/dL (8.4-10.2); Carbon Dioxide 25 mmol/L (22-29); Chloride 106 mmol/L (96-108); Cholesterol 180 mg/dL; Estimated Glomerular Filt Rate > 60; Glucose Fasting 146 mg/dL (60-99); HDL Cholesterol 34 mg/dL; LDL Cholesterol Calculated 120 mg/dl; Potassium 4.4 mmol/L (3.3-5.1); Prostate Specific Antigen Scr 0.36 ng/mL (<0.05-4.0); Sodium 138 mmol/L (135-145); TSH reflex Free T4 1.59 uIU/mL (0.32-4.0); Total Protein 7.6 g/dL (6.5-8.0); Triglycerides 132 mg/dL
[2022-10-09 12:53] LABS: Creatinine Urine 238.77 mg/dL; Microalbum/Creatinine Ratio Ur 9.6 ug/mg cr
== END 2022-10-09 09:40 | disposition home or self-care (01) ==
LOC: HO.WFDLDS 09:39
PROVIDERS: Visit Provider Family Medicine
DX: Z00.00 Encounter for general adult medical examination without abnormal findings (principal); Z12.5 Encounter for screening for malignant neoplasm of prostate; I10 Essential (primary) hypertension
CPT/HCPCS: 36415; 80053; 80061; 82043; 84153; 84443

== ENCOUNTER → 2023-01-02 08:13 | Outpatient (BNVA) | payer OTHER, SELFPAY | PROVIDERS: PCP Family Medicine; Referring Provider Family Medicine; Visit Provider Nurse Practitioner | DX: K21.9 Gastro-esophageal reflux disease without esophagitis (principal); K59.04 Chronic idiopathic constipation; Z86.010 Personal history of colon polyps; Z79.899 Other long term (current) drug therapy | CPT/HCPCS: 99212 ==

== ENCOUNTER 2023-07-03 08:14 | Outpatient (AMB) | payer OTHER, SELFPAY ==
--- NOTE | 2023-07-03 08:18 | A.OFFVIS_ITS ---
Intake Vital Signs 07/03/23 08:23 Height 5 ft 4 in Weight 222 lb 3.615 oz BMI 38.1 BP 141/72 H Blood Pressure Location Lt brachial Position Sitting Pulse 65 Intake Visit Reasons: 6 Month Follow Up GERD Intake Note: Patient returns to in office visit today in 6 months follow up of GERD. CC: Patient reports occasional lower abdominal pain scale 6/10. Denies other GI symptoms today. [employer] Required: No Accompanied by: Self / Same As Patient Allergies No Known Allergies Allergy (Verified 07/03/23 08:26) HPI 6 Month Follow Up GERD HPI Details Assessment & Plan (1) GERD (gastroesophageal reflux diseas e): ?Code(s): K21.9 - Gastro-esophageal reflux disease without esophagitis ?Plan: He continues to do well on his omeprazole 40mg qd. His CIC has not returned since he has been off of the methadone.? He is not due for colonoscopy screening again until 2025. He remains satisfied with his GI regimen and is agreeable to six-month follow-up (2) Chronic idiopathic constipation: ?Code(s): K59.04 - Chronic idiopathic constipation (3) Tubular adenoma of colon: ?Comment: Tubular adenoma in 2015, negative scope 2020 repeat 5 years aeb ?Code(s): D12.6 - Benign neoplasm of colon, unspecified TODAY'S VISIT He continues to do well on his omeprazole qd. No CIC, but he is having post prandial urgency (not diarrhea) since stopping the methadone. This is likely an over activation of the Mu receptors after chronic opioid stimulation, and since it bothers him I will give him a trial of bentyl 2omg. ROV 6 mos and sooner if bentyl not working. PFSH Medical History No known health problems Surgical History Hx of colonoscopy Family History Father Diabetes mellitus Mother No problems noted. Paternal Grandmother No problems noted. Brother No problems noted. Brother No problems noted. Sister No problems noted. Sister No problems noted. Sister No problems noted. Sister No problems noted. Daughter No problems noted. Daughter No problems noted. Daughter No problems noted. Social History Housing: Apartment Alcohol intake: current Alcohol intake frequency: does not drink Patient Tobacco Use Status: Never used Tobacco e-Cigarette/Vaping Use: Never Used Second Hand Smoke Exposure: No service: No Current occupational status: employed Current occupational exposures/hazards: No Cognitive needs: No Hearing needs: No Vision needs: No Review of Systems Const Denies fatigue, Denies fever(s), Denies night sweats, Denies poor appetite and Denies weight loss ENT Reports Normal hearing present, Denies dental pain, Denies dysphagia, Denies hearing loss, Denies mouth pain, Denies odynophagia, Denies throat swelling, Denies tongue swelling and Reports other (Dentition adequate) Card Reports no additional complaints Resp Reports no additional complaints GI Details: post prandial non diarrheal urgency Denies abdominal pain, Denies melena, Denies bloating, Denies hematochezia, Denies constipation, Reports GI cramping, Denies dysphagia, Denies excessive flatus, Denies early satiety, Reports heartburn, Denies diarrhea, Denies nausea, Denies odynophagia, Denies vomiting and Denies hematemesis Skin/Breast Denies pruritus, Denies lesions, Denies rash and Denies jaundice Neuro Reports Normal hearing present and Denies Abnormal speech present Endo Denies fatigue Aller/Immun Denies throat swelling and Denies tongue swelling Physical Exam Const General: cooperative, no acute distress, well developed and well groomed Nutritional Appearance: well nourished and overweight Orientation/consciousness: oriented to person, oriented to place and oriented to time Limitations: No language barrier HEENT Head: Yes normocephalic and Yes atraumatic Eyes General: appearance normal, both eyes and all related structures Pupils: Equal, round and reactive pupils present Neck Neck: Yes normal visual inspection and Yes no lymphadenopathy Thyroid: Thyroid normal Resp Effort & Inspection: normal respiratory effort and able to speak in complete sentences Auscultation: clear to auscultation bilaterally Cardio Rate: regular rate Rhythm: regular rhythm Heart sounds: Normal, physiologic split S2 sound present Peripheral pulses: radial pulses present and posterior tibial pulses present GI Inspection: No distended, No Abdominal panniculus present and Yes obesity Palpation (GI): Soft to palpation, nontender, no guarding, not rigid and No h epatosplenomegaly present Percussion: Yes normal to percussion Auscultation: normal bowel sounds Rectal Exam - Male: Yes deferred Skin General skin exam: no rashes or lesions noted, turgor normal, skin not dry, no jaundice, No spider nevi and no striae Rashes: no rashes Nails: normal Neuro General: oriented to person, oriented to place and oriented to time Cranial nerves: Yes Equal, round and reactive pupils present and Yes Normal hearing present Speech: No Abnormal speech present Extrem General: Yes normal to inspection, No clubbing, No cyanosis and No edema Psych Appearance: grossly normal and well kempt Mental Status: mental status grossly normal Speech and movement: Normal speech and movement present Affect: normal affect Attitude: cooperative Thought process: Normal thought process present and not confabulating Thought content: Normal thought content present Insight: Fair insight present (Psych) Judgement: Fair judgement present (Psych) Assessment & Plan Assessment & Plan (1) Abdominal pain: Code(s): R10.9 - Unspecified abdominal pain Plan: He continues to do well on his omeprazole qd. No CIC, but he is having post prandial urgency (not diarrhea) since stopping the methadone. This is likely an over activation of the Mu receptors after chronic opioid stimulation, and since it bothers him I will give him a trial of bentyl 2omg. ROV 6 mos and sooner if bentyl not working. (2) GERD (gastroesophageal reflux disease): Code(s): K21.9 - Gastro-esophageal reflux disease without esophagitis (3) Chronic idiopathic constipation: Comment: resolved since coming off of methadone Code(s): K59.04 - Chronic idiopathic constipation Medications: New dicyclomine 20 mg PO QID 30 days 120 tabs 3RF R10.9 - Unspecified abdominal pain Refilled omeprazole 40 mg PO DAILY 30 days 30 caps 6RF NS K21.9 - Gastro-esophageal reflux disease without esophagitis Coding Level of Care Code Est Pt Level 3 (45779) Diagnoses Abdominal pain R10.9 GERD (gastroesophageal reflux disease) K21.9 Chronic idiopathic constipation K59.04
[2023-07-03 08:23] VITALS: BP 141/72; PULSE 65; BMI 38.1
== END 2023-07-03 08:44 | disposition home or self-care (01) ==
PROVIDERS: PCP Family Medicine; Visit Provider Nurse Practitioner
DX: R10.9 Unspecified abdominal pain (principal); K21.9 Gastro-esophageal reflux disease without esophagitis; K59.04 Chronic idiopathic constipation
CPT/HCPCS: 99213

== ENCOUNTER → 2023-07-03 08:14 | Outpatient (BNVA) | payer OTHER, SELFPAY | PROVIDERS: PCP Family Medicine; Visit Provider Nurse Practitioner | DX: K21.9 Gastro-esophageal reflux disease without esophagitis (principal); R10.9 Unspecified abdominal pain; Z79.899 Other long term (current) drug therapy | CPT/HCPCS: 99212 ==

== ENCOUNTER 2024-05-20 09:57 | Outpatient (AMB) | payer OTHER, SELFPAY ==
[2024-05-20 10:01] VITALS: BP 147/84; PULSE 64; BMI 38.3
--- NOTE | 2024-05-20 10:01 | MHC.OFFVIS ---
Vital Signs 05/20/24 10:01 Height 5 ft 4 in Weight 223 lb 1.725 oz BMI 38.3 BP 147/84 H Blood Pressure Location Lt brachial Position Sitting Pulse 64 Intake Visit Reasons: 6 Month Follow Up Intake Note: Patient returns to in office visit today in 6 months follow up of GERD. CC: Patient reports doing well and denies having any new GI concerns today. Community Development Technician Required: No Accompanied by: Self / Same As Patient Allergies No Known Allergies Allergy (Verified 05/20/24 10:02) HPI HPI 6 Month Follow Up: Details: Assessment & Plan (1) Abdominal pain: Code(s): R10.9 - Unspecified abdominal pain Plan: He continues to do well on his omeprazole qd. No CIC, but he is having post prandial urgency (not diarrhea) since stopping the methadone. This is likely an over activation of the Mu receptors after chronic opioid stimulation, and since it bothers him I will give him a trial of bentyl 2omg. ROV 6 mos and sooner if bentyl not working. (2) GERD (gastroesophageal reflux disease): Code(s): K21.9 - Gastro-esophageal reflux disease without esophagitis (3) Chronic idiopathic constipation: Comment: resolved since coming off of methadone Code(s): K59.04 - Chronic idiopathic constipation Medications: New dicyclomine 20 mg PO QID 30 days 120 tabs 3RF R10.9 - Unspecified abdominal pain Refilled omeprazole 40 mg PO DAILY 30 days 30 caps 6RF NS K21.9 - Gastro-esophageal reflux disease without esophagitis TODAY'S VISIT He never received the bentyl, but his abd pain has resolved w/o tx. He continues to do well on his omeprazole. ROV 6 mos. [facility] Medical History (Updated 05/20/24 @ 10:51 by LINDSAY Murry) Screening for prostate cancer Low back sprain Contusion, knee Muscle strain Abdominal pain Screening for colon cancer Adult general medical exam Laboratory examination ordered as part of a routine general medical examination Chronic idiopathic constipation No known health problems Surgical History Hx of colonoscopy Family History Father Diabetes mellitus Mother No problems noted. Paternal Grandmother No problems noted. Brother No problems noted. Brother No problems noted. Sister No problems noted. Sister No problems noted. Sister No problems noted. Sister No problems noted. Daughter No problems noted. Daughter No problems noted. Daughter No problems noted. Social History Housing: Apartment Alcohol intake: current Alcohol intake frequency: does not drink Patient Tobacco Use Status: Never used Tobacco e-Cigarette/Vaping Use: Never Used Second Hand Smoke Exposure: No service: No Current occupational status: employed Current occupational exposures/hazards: No Cognitive needs: No Hearing needs: No Vision needs: No Review of Systems Const Denies fatigue, Denies fever(s), Denies night sweats, Denies poor appetite and Denies weight loss ENT Reports Normal hearing present, Denies dental pain, Denies dysphagia, Denies hearing loss, Denies mouth pain, Denies odynophagia, Denies throat swelling, Denies tongue swelling and Reports other (Dentition adequate) Card Reports no additional complaints Resp Reports no additional complaints GI Details: Denies abdominal pain, Denies melena, Denies bloating, Denies hematochezia, Denies constipation, Denies GI cramping, Denies dysphagia, Denies excessive flatus, Denies early satiety, Reports heartburn, Denies diarrhea, Denies nausea, Denies odynophagia, Denies vomiting and Denies hematemesis Skin/Breast Denies pruritus, Denies lesions, Denies rash and Denies jaundice Neuro Reports Normal hearing present and Denies Abnormal speech present Endo Denies fatigue Aller/Immun Denies throat swelling and Denies tongue swelling Physical Exam Vital Signs: Last Vital Signs Pulse 64 05/20/24 10:01 BP 147/84 H 05/20/24 10:01 BMI result Body Mass Index 38.3 Const General: cooperative, no acute distress, well developed and well groomed Nutritional Appearance: well nourished and obese Orientation/consciousness: oriented to person, oriented to place and oriented to time Limitations: No language barrier HEENT Head: Yes normocephalic and Yes atraumatic Eyes General: appearance normal, both eyes and all related structures Pupils: Equal, round and reactive pupils present Neck Neck: Yes normal visual inspection and Yes no lymphadenopathy Thyroid: Thyroid normal Resp Effort & Inspection: normal respiratory effort and able to speak in complete sentences Auscultation: clear to auscultation bilaterally Cardio Rate: regular rate Rhythm: regular rhythm Heart sounds: Normal, physiologic split S2 sound present Peripheral pulses: radial pulses present and posterior tibial pulses present GI Inspection: No distended, No Abdominal panniculus present and Yes obesity Palpation (GI): Soft to palpation, nontender, no guarding, not rigid and No hepatosplenomegaly present Percussion: Yes normal to percussion Auscultation: normal bowel sounds Rectal Exam - Male: Yes deferred Skin General skin exam: no rashes or lesions noted, turgor normal, skin not dry, no jaundice, No spider nevi and no striae Rashes: no rashes Nails: normal Neuro General: oriented to person, oriented to place and oriented to time Cranial nerves: Yes Equal, round and reactive pupils present and Yes Normal hearing present Speech: No Abnormal speech present Extrem General: Yes normal to inspection, No clubbing, No cyanosis and No edema Psych Appearance: grossly normal and well kempt Mental Status: mental status grossly normal Speech and movement: Normal speech and movement present Affect: normal affect Attitude: cooperative Thought process: Normal thought process present and not confabulating Thought content: Normal thought content present Insight: Limited insight present (Psych) Judgement: Limited judgement present (Psych) Assessment & Plan Assessment & Plan (1) GERD (gastroesophageal reflux disease): Code(s): K21.9 - Gastro-esophageal reflux disease without esophagitis Category: Medical Plan He never received the bentyl, but his abd pain has resolved w/o tx. He continues to do well on his omeprazole. ROV 6 mos. Medications: Refilled omeprazole 40 mg PO DAILY 30 caps 6RF 30 days NS K21.9 - Gastro-esophageal reflux disease without esophagitis Discontinued dicyclomine Discontinued Reason: Patient no longer taking 20 mg PO QID 30 days 120 tabs 3RF R10.9 - Unspecified abdominal pain Coding Level of Care Code Est Pt Level 3 (78711) Diagnoses GERD (gastroesophageal reflux disease) K21.9
== END 2024-05-20 12:05 | disposition home or self-care (01) ==
PROVIDERS: PCP Family Medicine; Visit Provider Nurse Practitioner
DX: K21.9 Gastro-esophageal reflux disease without esophagitis (principal)
CPT/HCPCS: 99213

== ENCOUNTER → 2024-05-20 09:57 | Outpatient (BNVA) | payer OTHER, SELFPAY | PROVIDERS: PCP Family Medicine; Visit Provider Nurse Practitioner | DX: K21.9 Gastro-esophageal reflux disease without esophagitis (principal) | CPT/HCPCS: 99212 ==

== ENCOUNTER → 2025-01-20 09:10 | Outpatient (BNVA) | payer OTHER, SELFPAY | PROVIDERS: PCP Family Medicine; Visit Provider Nurse Practitioner ==